=== PATIENT | female | born 1975 | race Caucasian/White ===

== ENCOUNTER 2017-02-03 14:37 | Emergency (ER) | payer BC ==
[2017-02-03 15:56] VITALS: BP 120/65
--- NOTE | 2017-02-03 16:27 | UC ---
Throat Pain/Nasal Wesley HPI - HPI Summary HPI Summary: ONE WEEK OF CONGESTION, THREE DAYS OF WORSENING SINUS PRESSURE SINUS HEADACHE. NO FEVER NO COUGH. NO SORETHROAT - History of Current Complaint Chief Complaint: UCGeneralIllness Stated Complaint: SINUS/EAR COMPLAINT Time Seen by Provider: 02/03/17 15:51 Hx Obtained From: Patient Hx Last Menstrual Period: 2008 Onset/Duration: Sudden Onset, Lasting Weeks Severity: Moderate Pain Intensity: 7 Pain Scale Used: 0-10 Numeric Cough: Nonproductive Associated Signs & Symptoms: Positive: Hoarseness, Sinus Discomfort, Nasal Discharge - Epiglottits Risk Factors Epiglottis Risk Factors: Negative - Allergies/Home Medications Allergies/Adverse Reactions: Allergies Allergy/AdvReac Type Severity Reaction Status Date / Time Doxycycline Allergy Severe Vomiting Verified 02/03/17 15:52 Latex Allergy Severe RASH HIVES Verified 02/03/17 15:52 Tetracyclines Allergy Severe Vomiting Verified 02/03/17 15:52 environmental Allergy Congestion Uncoded 02/03/17 15:52 Home Medications: Home Medications Fexofenadine (NF) [Yenny 180 (NF)] 180 mg PO DAILY 02/03/17 [History Confirmed 02/03/17] PMH/Surg Hx/FS Hx/Imm Hx Previously Healthy: Yes - Surgical History Surgical History: Yes Surgery Procedure, Year, and Place: right arm surgery with plate and screws, gallbladder removed , appendectomy,tubal ligation. cyst removed from ovaries, tonsillectomy, partial hysterectomy. Uterine ablation 2008 - Family History Known Family History: Negative: Respiratory Disease - Social History Occupation: Employed Full-time Lives: With Family Alcohol Use: None Substance Use Type: None Smoking Status (MU): Former Smoker When Did the Patient Quit Smoking/Using Tobacco: 09/2016 - Immunization History Most Recent Influenza Vaccination: Not the Season Review of Systems Constitutional: Negative Skin: Negative Eyes: Negative ENT: Ear Ache, Nasal Discharge, Sinus Congestion, Sinus Pain/Tenderness Respiratory: Negative Cardiovascular: Negative Gastrointestinal: Negative Genitourinary: Negative Motor: Negative Neurovascular: Negative Musculoskeletal: Negative Neurological: Negative Psychological: Negative Is Patient Immunocompromised?: No All Other Systems Reviewed And Are Negative: Yes Physical Exam Triage Information Reviewed: Yes Appearance: Well-Appearing, No Pain Distress, Well-Nourished Vital Signs: Initial Vital Signs Temp 98.1 F 02/03/17 15:51 Pulse 72 02/03/17 15:51 Resp 16 02/03/17 15:51 BP 120/65 02/03/17 15:51 Pulse Ox 100 02/03/17 15:51 Vital Signs Reviewed: Yes Eye Exam: Normal ENT: Positive: Hearing grossly normal, Pharynx normal, Nasal congestion, TM bulging, TM dull Dental Exam: Normal Neck exam: Normal Neck: Positive: Supple, Nontender, No Lymphadenopathy Respiratory Exam: Normal Respiratory: Positive: Chest non-tender, Lungs clear, Normal breath sounds, No respiratory distress, No accessory muscle use Cardiovascular Exam: Normal Cardiovascular: Positive: RRR, No Murmur, Pulses Normal Abdominal Exam: Normal Musculoskeletal Exam: Normal Musculoskeletal: Positive: Strength Intact, ROM Intact Neurological Exam: Normal Psychological Exam: Normal Psychological: Positive: Normal Response To Family Skin Exam: Normal Throat Pain/Nasal Course/Dx - Differential Dx/Diagnosis Differential Diagnosis/HQI/PQRI: Pharyngitis, Sinusitis, Tonsillitis, URI Provider Diagnoses: SINUSITIS Discharge - Discharge Plan Condition: Stable Disposition: HOME Prescriptions: Amoxicillin/Clavulanate TAB* [Augmentin TAB 875*] 875 mg PO BID #20 tab Patient Education Materials: Sinusitis (ED) Referrals: Fern Doss MD [Primary Care Provider] -
== END 2017-02-03 16:22 | disposition home or self-care (01) ==
LOC: UCCORT 14:37
DX: J32.9 Chronic sinusitis, unspecified (principal)
CPT/HCPCS: 99212; G0463

== ENCOUNTER 2017-02-18 09:00 | Day surgery (SDC) | payer BC ==
[~2017-02-18 09:00] MED LIST: Buffered Lidocaine 0.9% SYRIN* 5 ML/SYR SYRINGE INTRADERM ONE; Famotidine IV* 10 MG/ML 2 ML (20 mg) IV ONE; Famotidine IV* 10 MG/ML 2 ML (20 mg) ONE; Levalbuterol 0.63MG/3ML NEB* UNIT OF USE INH PRN; Metoclopramide TAB* 10 MG ONE; Metoclopramide TAB* 10 MG PO ONE; Ondansetron INJ* 2 MG/ML VIAL IV PRN; fentaNYL* 50 MCG/ML 2 ML VIAL (100 MCG VIAL) IV PRN
[2017-02-18] MEDS ORDERED: fentaNYL* 50 MCG/ML 2 ML VIAL (100 MCG VIAL) ONE ×2 (09:14→11:20)
[2017-02-18] MEDS ORDERED: Ondansetron INJ* 2 MG/ML VIAL ONE (09:14)
[2017-02-18] MEDS ORDERED: Lidocaine 2% PF * 5 ML VIAL ONE (09:14)
[2017-02-18] MEDS ORDERED: Midazolam* 1 MG/ML 5 ML VIAL (5 MG) ONE (09:14)
[2017-02-18] MEDS ORDERED: Dexamethasone IV* 4 MG/ML 1 ML (4 MG) ONE (09:14)
[2017-02-18] MEDS ORDERED: Propofol* 10 MG/ML 20 ML BTL IV PUSH ONE (09:14)
[2017-02-18] MEDS ORDERED: Ketorolac INJ* 30 MG/ML 1 ML VIAL ONE (09:14)
[2017-02-18] MEDS ORDERED: KETAMINE HCL* 50 MG/ML 10 ML VIAL ONE (09:14)
[2017-02-18] MEDS ORDERED: Bupivacaine 0.25% SDV* 30 ML ONE ×2 (09:29→11:28)
[2017-02-18] MEDS ORDERED: ceFAZolin 2 GM PREMIX (*) 50 ML IVPB ONE (10:02)
[2017-02-18] MEDS ORDERED: Scopolamine 1.5 mg* PATCH ONE (13:31)
[2017-02-18] MEDS ORDERED: DiMENhydriNATE IV* 50 MG/ML VIAL ONE (13:31)
[2017-02-18 14:37] VITALS: BP 133/81
--- NOTE | 2017-02-19 12:25 | OP ---
OPERATIVE REPORT: DATE OF OPERATION: 02/18/17 - RORY DATE OF : 75 SURGEON: Carlos Clinton MD PENOLOGY PROFESSOR: GIORGI James. An medical assistant supervisor was needed for the entirety of the procedure to aid in positioning of the arm and retraction. ANESTHESIOLOGIST: Dr. Mullen. ANESTHESIA: General. PRE-OP DIAGNOSES: 1. Left carpal tunnel syndrome. 2. Left cubital tunnel syndrome. POST-OP DIAGNOSES: 1. Left carpal tunnel syndrome. 2. Left cubital tunnel syndrome. OPERATIVE PROCEDURE: 1. Left open carpal tunnel release. 2. Left in situ ulnar nerve decompression in the elbow. INDICATIONS: Opal is 41. She has had progressive symptoms for quite some time. She has failed non-operative treatment. She is having symptoms that are definitely consistent with carpal tunnel syndrome, which was seen on electrodiagnostics. She is also having quite a bit of numbness and tingling in just the ring and small fingers and clinically she had cubital tunnel syndrome. I talked about just doing the carpal tunnel release versus doing both, she definitely wanted to both releases. I talked to her about risks and benefits including risk of wound problems. She understood and wanted to proceed. ESTIMATED BLOOD LOSS: 5 mL. COMPLICATIONS: None. FINDINGS: There was a definite area of flattening and compression of the ulnar nerve just at the distal aspect of Alan's ligament about 1 to 1.5 cm. DESCRIPTION OF PROCEDURE: Opal was seen in the preoperative holding area. The correct side, site, and procedure were identified. We came back to the operating room where anesthesia was induced. The arm was prepped and draped in the usual fashion and the time-out was performed. I began by exsanguinating the arm with the Esmarch and the tourniquet was inflated to 250 mmHg. I then made a 2 to 3 cm incision in the standard location for an open carpal tunnel release. Dissection was carried down through the subcutaneous tissue and fascia to expose the transverse carpal ligament. The ligament was released just off the radial aspect of the hook of the hamate. Once the distal release was complete, I continued proximally until I released the skin and subcutaneous tissue proximally and retracted it volarly and ulnarly with the Cory retractor. I then completed the release of the transverse carpal ligament with the knife and tenotomy scissors to a level several centimeters proximal to the wrist flexion crease. Once I checked the release, it was completely released proximally and distally and there was absolutely no compression on the nerve. I went ahead and irrigated out the wound. Skin was closed with 4-0 nylon suture. I entered my attention to the elbow. I made a curvilinear incision centered over Alan's ligament in line with the ulnar nerve. This extended for about 4 cm proximal and distal. I then completed the dissection down to the fascia proximally with the Bovie and distally I used the tenotomy scissors to avoid injury to the medial antebrachial cutaneous nerve. Several large subcutaneous veins were cauterized. I then started my decompression at the Alan's ligament. This was done with the tenotomy scissors. I was not getting great visualization proximally and so I took another 2 or 3 cm of incision proximally. I was then able to place an appendiceal retraction and get excellent visualization of the ulnar nerve. This was released with the tenotomy scissors up until the arcade of [place] was released. I then came distally and released the Alan's ligament. Right at the distal aspect of Alan's ligament, there was a definite tenorio area of flattening and compression of the nerve. I then released the superficial FCU fascia. I split the 2 heads of the FCU with the [place] and then I released the subfascial layer. I completed the release until there was absolutely no compression on the nerve. I flexed and extended the elbow. There was no subluxation of the nerve, I therefore irrigated out the wound. Hemostasis was obtained with the Bovie. The subcutaneous tissue was reapproximated with 3-0 Vicryl suture. Skin was closed with 4-0 nylon suture. All of the operative areas were then infiltrated with 0.25% plain Marcaine. Wounds were dressed with Xeroform, 4x4's, and ABD at the elbow, sterile Webril, and Francisco bandages. The tourniquet was deflated and the hand pinked up immediately. She was then taken to recovery room in stable condition [id number]/[facility] #: [id number] [facility]
== END 2017-02-18 14:51 | disposition home or self-care (01) ==
LOC: OREAST 09:00
PROVIDERS: ATTEND Orthopaedic Surgery Hand Surgery
DX: G56.02 Carpal tunnel syndrome, left upper limb (principal); G56.22 Lesion of ulnar nerve, left upper limb; J45.909 Unspecified asthma, uncomplicated; G47.33 Obstructive sleep apnea (adult) (pediatric)
CPT/HCPCS: A9270-GY; J0690; J1100; J1240; J1885; J2250; J2405; J2704; J3010

== ENCOUNTER 2017-03-12 10:09 | Day surgery (SDC) | payer BC ==
[2017-03-12] MEDS ORDERED: Lidocaine 1% MPF wEPI 200,000* 30 ML SDV ONE (10:13)
[2017-03-12] MEDS ORDERED: Bupivacaine 0.25% SDV* 30 ML ONE (11:58)
[2017-03-12 12:33] VITALS: BP 142/77
--- NOTE | 2017-03-13 02:08 | OP ---
OPERATIVE REPORT: DATE OF OPERATION: 03/12/17 - RORY DATE OF : 75 SURGEON: Carlos Clinton MD. ANNEALING OPERATOR: GIORGI James. ANESTHESIOLOGIST: None. ANESTHESIA: Local only with 1% lidocaine with epinephrine and bicarbonate. PRE-OP DIAGNOSIS: Right carpal tunnel syndrome. POST-OP DIAGNOSIS: Right carpal tunnel syndrome. OPERATIVE PROCEDURE: Right open carpal tunnel release. INDICATIONS: Opal recently had her left carpal and cubital tunnel releases. She is still having symptoms on the right consistent with carpal tunnel syndrome. We talked about risks and benefits. She wants to proceed. ESTIMATED BLOOD LOSS: 5 mL. COMPLICATIONS: None. FINDINGS: As expected. DESCRIPTION OF PROCEDURE: Opal was seen in the preoperative holding area and the correct site, side, and procedure were identified. We had a time-out and then I infiltrated the operative area with 1% lidocaine with epinephrine and bicarbonate. A short time later, we came back to the operating room and the arm was prepped and draped in the usual fashion and a time-out was performed. I made a 2 to 3 cm longitudinal incision in the standard location for an open carpal tunnel release. Dissection was carried down through the subcutaneous tissue and palmar fascia. The fascia and subcutaneous tissue proximally was released. I then released the transverse carpal ligament just off the radial aspect of the hook of the hamate. The release was completed distally and then I came proximally, where a Cory retractor was placed to retract the fascia and subcutaneous tissue superficially and ulnarly. Under direct visualization, I then released the remainder of the transverse carpal ligament in the distal antebrachial fascia with the tenotomy scissors to a level several centimeters proximal to the wrist flexion crease. I then checked the decompression proximally and distally, everything was completely decompressed. There was absolutely no pressure on the nerve. I went ahead and irrigated out the wounds. The skin was closed with 4-0 nylon suture. The wound was dressed with Xeroform, 4x4, sterile Webril and an Francisco bandage. We did infiltrate with some 0.25% Marcaine in the operative area. She was then taken to the recovery room in stable condition. [id number]/[facility] #: [id number] [facility]
== END 2017-03-12 12:44 | disposition home or self-care (01) ==
LOC: OREAST 10:09
PROVIDERS: ATTEND Orthopaedic Surgery Hand Surgery
DX: G56.01 Carpal tunnel syndrome, right upper limb (principal); Z87.891 Personal history of nicotine dependence; G56.22 Lesion of ulnar nerve, left upper limb
CPT/HCPCS: J2001